=== PATIENT | male | born 1935 | race African-American/Black ===

== ENCOUNTER 2017-04-01 08:52 | Day surgery (SDC) | payer OTHER ==
[2017-04-01] MEDS ORDERED: TETRACAINE 0.5% OPHTH 1 DOSE AFFEYE ONE ×2 (09:15→12:52)
[2017-04-01] MEDS ORDERED: VIGAMOX 0.5% OPHTH 1 DOSE AFFEYE ONE ×5 (09:16→13:42)
[2017-04-01] MEDS ORDERED: PROLENSA OPHTH 1 DOSE AFFEYE ONE (09:27)
[2017-04-01] MEDS ORDERED: ALPHAGAN-P OPHTH 1 DOSE AFFEYE ONE (09:28)
[2017-04-01] MEDS ORDERED: MYDRIACIL OPHTH 1 DOSE AFFEYE ONE ×4 (09:29→09:32)
[2017-04-01] MEDS ORDERED: CYCLOGYL 1% OPHTH 1 DOSE OP ONE ×4 (09:29→09:32)
[2017-04-01] MEDS ORDERED: AK-DILATE 2.5% OPHTH 1 DOSE OP ONE ×4 (09:29→09:32)
[2017-04-01] MEDS ORDERED: NS 500 ML IV 500 ML IV ONE (09:38)
[2017-04-01] MEDS ORDERED: BETADINE OPHTH SOLN 5% EACHEYE ONE (12:52)
[2017-04-01] MEDS ORDERED: ADRENALINE CHL INJ IJ ONE ×2 (13:12→13:27)
[2017-04-01] MEDS ORDERED: DUOVISC IO ONE ×2 (13:12→13:27)
[2017-04-01] MEDS ORDERED: XYLOCAINE-MPF 1% IJ ONE ×2 (13:12→13:27)
[2017-04-01] MEDS ORDERED: BSS OPHTH (PLAIN) 500 ML with VANCOMYCIN HCL 500 MG VIAL 25 MG, ADRENALINE CHL INJ 1 MG IR ONE ×6 (13:14)
[2017-04-01] MEDS ORDERED: VISCOAT 0.5 ML IO ONE (13:39)
[2017-04-01] MEDS ORDERED: VERSED ONE (15:37)
[2017-04-01 16:15] VITALS: BP 175/68
== END 2017-04-01 14:08 | disposition home or self-care (01) ==
LOC: SURG1 08:52
PROVIDERS: ATTEND Ophthalmology
PROC: 08RK3JZ Replacement of Left Lens with Synthetic Substitute, Percutaneous Approach (ICD-10-PCS; principal; 2017-04-01 17:45)
PROC: 08DK3ZZ Extraction of Left Lens, Percutaneous Approach (ICD-10-PCS; principal; 2017-04-01 17:45)
DX: H25.12 Age-related nuclear cataract, left eye (principal); H25.042 Posterior subcapsular polar age-related cataract, left eye
CPT/HCPCS: 99100; J0170; J2250; J3370

== ENCOUNTER 2017-04-15 07:50 | Day surgery (SDC) | payer OTHER ==
[2017-04-15] MEDS ORDERED: TETRACAINE 0.5% OPHTH 1 DOSE AFFEYE ONE ×3 (08:15→10:54)
[2017-04-15] MEDS ORDERED: VIGAMOX 0.5% OPHTH 1 DOSE AFFEYE ONE ×6 (08:16→11:09)
[2017-04-15] MEDS ORDERED: NS 500 ML IV 500 ML IV ONE (08:22)
[2017-04-15] MEDS ORDERED: PROLENSA OPHTH 1 DOSE AFFEYE ONE (08:27)
[2017-04-15] MEDS ORDERED: CYCLOGYL 1% OPHTH 1 DOSE OP ONE ×2 (08:28→08:29)
[2017-04-15] MEDS ORDERED: ALPHAGAN-P OPHTH 1 DOSE AFFEYE ONE (08:28)
[2017-04-15] MEDS ORDERED: MYDRIACIL OPHTH 1 DOSE AFFEYE ONE ×2 (08:28→08:29)
[2017-04-15] MEDS ORDERED: AK-DILATE 2.5% OPHTH 1 DOSE OP ONE ×2 (08:28→08:29)
[2017-04-15] MEDS ORDERED: VERSED ONE (10:30)
[2017-04-15] MEDS ORDERED: BETADINE OPHTH SOLN 5% EACHEYE ONE (10:45)
[2017-04-15] MEDS ORDERED: XYLOCAINE-MPF 1% IJ ONE (10:54)
[2017-04-15] MEDS ORDERED: DUOVISC IO ONE (10:54)
[2017-04-15] MEDS ORDERED: ADRENALINE CHL INJ IJ ONE (10:54)
[2017-04-15] MEDS ORDERED: BSS OPHTH (PLAIN) 500 ML with VANCOMYCIN HCL 500 MG VIAL 25 MG, ADRENALINE CHL INJ 1 MG IR ONE ×6 (10:57)
[2017-04-15] MEDS ORDERED: VISCOAT 0.5 ML IO ONE (11:02)
[2017-04-15 11:40] VITALS: BP 171/76
== END 2017-04-15 11:35 | disposition home or self-care (01) ==
LOC: SURG1 07:50
PROVIDERS: ATTEND Ophthalmology
PROC: 08RJ3JZ Replacement of Right Lens with Synthetic Substitute, Percutaneous Approach (ICD-10-PCS; principal; 2017-04-15 12:00)
PROC: 08DJ3ZZ Extraction of Right Lens, Percutaneous Approach (ICD-10-PCS; principal; 2017-04-15 12:00)
DX: H25.11 Age-related nuclear cataract, right eye (principal); H25.041 Posterior subcapsular polar age-related cataract, right eye
CPT/HCPCS: 99100; A4217; J0170; J2250; J3370